=== PATIENT | female | born 1975 | race Caucasian/White ===

== ENCOUNTER 2016-09-06 13:38 | Inpatient (IN) | payer OTHER ==
[2016-09-06] VITALS (21 sets, daily range): BP systolic 97–131; BP diastolic 59–88; PULSE 62–82; RESP 14–67; Ht 157.5 cm; Wt 65.0 kg
[~2016-09-06] VITALS: Ht 157.5 cm; Wt 65.0 kg
[2016-09-06] MEDS ORDERED: ONDANSETRON 4 MG INJ IV STA ×2 (13:55→14:10)
[2016-09-06] MEDS ORDERED: ASPIRIN 325 MG TAB PO STA (13:55)
[2016-09-06] MEDS ORDERED: SOD CHLORIDE 0.9% 1,000 ML IV STA (13:57)
[2016-09-06] MEDS ORDERED: LORAZEPAM 2 MG INJ IV ONE (14:00)
[2016-09-06 14:07] LABS: BASOPHILS % 0.6 % (0.0-2.0); EOSINOPHILS # 0.2 10^3/ul (0.0-0.5); HEMATOCRIT 35.1 % (37.0-47.0); HEMOGLOBIN 11.4 g/dl (12.0-16.0); LYMPHOCYTES # 3.2 10^3/ul (0.8-2.9); LYMPHOCYTES % 41.2 % (15.0-51.0); MEAN CORPUSCULAR HEMOGLOBIN 23.4 pg (29.0-33.0); MEAN CORPUSCULAR HGB CONC 32.6 g/dl (32.0-37.0); MEAN CORPUSCULAR VOLUME 71.8 fl (82.0-101.0); MEAN PLATELET VOLUME 7.7 fl (7.4-10.4); MONOCYTE # 0.4 10^3/ul (0.3-0.9); MONOCYTES % 5.7 % (0.0-11.0); NEUTROPHILS % 50.5 % (39.0-77.0); PLATELET COUNT 374 10^3/UL (140-440); RED BLOOD COUNT 4.89 10^6/ul (4.20-5.40); RED CELL DISTRIBUTION WIDTH 17.6 % (11.5-14.5); UNCORRECTED WBC 7.9 10^3/ul (4.8-10.8); WHITE BLOOD COUNT 7.9 10^3/ul (4.8-10.8)
[2016-09-06 14:08] LABS: CONDITION 1; LH ANALYZER COMMENTS 1
[2016-09-06] MEDS ORDERED: morphine 2 MG INJ IV STA ×2 (14:10→16:10)
--- NOTE | 2016-09-06 14:11 | RADRPT ---
PROCEDURE: Chest Radiograph. CLINICAL INDICATION: Chest pain. Code STEMI. TECHNIQUE: Single frontal chest radiograph. COMPARISON: None available FINDINGS: The cardiomediastinal silhouette is within normal limits. No infiltrate or effusion is seen. Th e bones are intact. IMPRESSION: 1. Unremarkable chest radiograph. RPTAT: KK .Jessee Colby MD, MD Date Time Electronically viewed and signed by .Jessee Colby MD, on 09/06/2016 14:10 .B/
[2016-09-06 14:14] LABS: ALBUMIN 4.6 g/dl (3.3-4.9); CHLORIDE 104 mmol/L (97-110); INR 0.87; PROTIME 11.8 Sec (12.2-14.2); PT RATIO 0.9
[2016-09-06] MEDS ORDERED: HEPARIN 1000 UNITS/ML 10 ML INJ ONE (14:14)
[2016-09-06] MEDS ORDERED: FENTAnyl 50 MCG/ML VIAL ONE ×2 (14:14→14:51)
[2016-09-06] MEDS ORDERED: HEPARIN 1000 UNITS/NS (A-LINE) 1,000 ML ONE (14:14)
[2016-09-06] MEDS ORDERED: LIDOCAINE 1% (MDV) 20 ML INJ ONE (14:14)
[2016-09-06] MEDS ORDERED: BIVALIRUDIN 250MG /NS 50 ML 0 ML IVPB ONE (14:14)
[2016-09-06] MEDS ORDERED: MIDAZOLAM 1 MG/ML 2 ML INJ ONE (14:14)
[2016-09-06] MEDS ORDERED: IODIXANOL LOCM 100 ML BTL ONE (14:14)
[2016-09-06 14:15] LABS: PARTIAL THROMBOPLASTIN TIME 25.2 Sec (25.0-35.0); POTASSIUM 3.7 mmol/L (3.5-5.1); SODIUM 143 mmol/L (135-144)
[2016-09-06 14:17] LABS: ALANINE AMINOTRANSFERASE 23 IU/L (13-69); ALBUMIN/GLOBULIN RATIO 1.24; ALKALINE PHOSPHATASE 94 IU/L (42-121); ANION GAP 24 (8-16); ASPARTATE AMINO TRANSFERASE 24 IU/L (15-46); BILIRUBIN,INDIRECT 0.1 mg/dl (0-1.1); BILIRUBIN,TOTAL 0.1 mg/dl (0.2-1.3); BLOOD UREA NITROGEN 17 mg/dl (7-20); CALCIUM 9.7 mg/dl (8.4-10.2); CARBON DIOXIDE 19 mmol/L (21-31); CREATININE 0.93 mg/dl (0.44-1.00); GLUCOSE 111 mg/dl (70-220); TOTAL PROTEIN 8.3 g/dl (6.1-8.1)
[2016-09-06] MEDS ORDERED: VERAPAMIL 5 MG INJ ONE (14:17)
--- NOTE | 2016-09-06 14:17 | ERA ---
ER Documentation Chief Complaint Date/Time DATE: 09/06/16 TIME: 14:12 Chief Complaint CP SINCE 2AM TODAY HPI This is a 41-year-old female with no past medical history that presents to the emergency department complaining of a sudden onset of left substernal chest pressure that radiated to the left side of her neck and right side of her neck as well as her left arm 2 hours prior to arrival. The patient stated the pain started at 12:30 PM as she was leaving work. She stated she did not feel anxious or nervous but did have associated symptoms of diaphoresis and nausea. The patient did not experience any hemoptysis hematemesis or melanotic stools. The patient has family history of coronary artery disease his mother had a heart attack at 44 years of age. The patient does not smoke tobacco. She states the pain is 10 out of 10 in intensity with no alleviating or exacerbating factors ROS All systems reviewed and are negative except as per history of present illness. Medications Home Meds No Active Prescriptions or Reported Meds Allergies Allergies: Coded Allergies: No Known Allergy (Unverified , 09/06/16) PMhx/Soc History of Surgery: Yes (C-SECT) Physical Exam Vitals Vital Signs Date Time Temp Pulse Resp B/P Pulse Ox O2 Delivery O2 Flow Rate FiO2 09/06/16 13:50 97.9 87 19 151/80 100 Physical Exam Constitutional:Well-developed. Well-nourished. Patient was very tearful and appeared to be in a significant amount discomfort secondary to pain HEENT:Normocephalic. Atraumatic.Pupils were equal round reactive to light. Moist mucous membranes.No tonsillar exudates. Neck: No nuchal rigidity. No lymphadenopathy. No posterior cervical spine tenderness or step-offs. Respiratory: Not using accessory muscles of respiration.Lungs were clear to auscultation bilaterally. No rhonchi. No rales. No wheezing. Cardiovascular: Regular rate regular rhythm.No murmurs. No rubs were appreciated.S1, S2 normal. Distal pulses are palpable 2+ bilaterally. GI: Abdomen was soft. Nontender. Non Distended. No pulsatile abdominal masses or bruits. No rebound. No guarding. Bowel sounds were present and normal. Muscle skeletal: Full range of motion of both the upper and lower extremities bilaterally.Normal muscle tone.No assymetrical calf tenderness or swelling. Skin: No petechia, no purpura. No lesions on the palms or the soles of the feet. No maculopapular rash. NEURO: Patient was alert, awake, orientated x3.No facial droop. Gait observed and normal with no ataxia.Speech had regular rate and rhythm. No focal neurological deficits. Result Diagram: 09/06/16 1355 Results 24 hrs Laboratory Tests Test 09/06/16 13:55 Basophils # 0.010^3/ul Basophils % 0.6% Blood Morphology Comment Eosinophils # 0.210^3/ul Eosinophils % 2.0% Hematocrit 35.1% Hemoglobin 11.4g/dl Lymphocytes # 3.210^3/ul Lymphocytes % 41.2% Mean Corpuscular Hemoglobin 23.4pg Mean Corpuscular Hemoglobin Concent 32.6g/dl Mean Corpuscular Volume 71.8fl Mean Platelet Volume 7.7fl Monocytes # 0.410^3/ul Monocytes % 5.7% Neutrophils # 4.010^3/ul Neutrophils % 50.5% Nucleated Red Blood Cells # 0.010^3/ul Nucleated Red Blood Cells % 0.0/100WBC Platelet Count 60761^3/UL Red Blood Count 4.8910^6/ul Red Cell Distribution Width 17.6% White Blood Count 7.910^3/ul Current Medications Medications (Trade) Dose Ordered Sig/Gabriel Route PRN Reason Start Time Stop Time Status Last Admin Dose Admin Aspirin (Aspirin) 325 mg ONCE STAT PO 09/06/16 13:55 09/06/16 13:57 DC 09/06/16 14:01 Ondansetron HCl (Zofran Inj) 4 mg ONCE STAT IV 09/06/16 13:55 09/06/16 13:57 DC 09/06/16 14:01 Lorazepam 1 mg 1 mg ONCE ONCE IV 09/06/16 14:00 09/06/16 14:01 DC 09/06/16 14:01 Sodium Chloride (NS) 1,000 ml @ 1,000 mls/hr Q1H STAT IV 09/06/16 13:57 09/06/16 14:56 09/06/16 14:01 Procedures/[facility] The patient presented to the emergency department with chest pain. My clinical evaluation and workup was to distinguish minor causes of chest pain from acute life threatening conditions such as myocardial infarction, pulmonary embolism, aortic dissection, esophageal rupture, cardiac tamponade. The patient was placed on a electronic device monitor and continuous pulse oximetry. IV access established by nursing staff. The patient was given 325 mg of aspirin p.o. Nitroglycerin was withheld as the patient could have an inferior wall NV. The patient appeared very anxious and was given 1 mg of Ativan intravenously and morphine and Zofran for analgesic control as well as a liter bolus of 0.9 normal saline I immediately called the code STEMI after reviewing the EKG which was taken at 1339 but was shown to myself at 1:54 PM 12 Lead EKG tracing ordered and reviewed by myself showed: Normal sinus rhythm of 85 bpm and no arrhythmia. AL interval normal. QRS duration normal. ST segment elevation in the inferior leads to [address] segment depression in the anterior leads V2 V3. No ST segment depression. No changes consistent with acute ischemia. Repeat EKG taken at 1340 reviewed by myself as well also indicated a normal sinus rhythm at 79 penetrable normal QRS duration normal however there did appear to be ST segment depression in anterior leads V2 V3 with ST segment elevation in [address] Shipley immediately came to the bedside and the patient was taken to the Log Sorter at 1418. 1 view chest radiograph for and reviewed by myself indicated there is no infiltrates no pneumothorax or pleural effusions and no widened mediastinum. There is no leukocytosis and cardiac troponin is currently pending at this time Departure Diagnosis: Primary Impression: STEMI (ST elevation myocardial infarction) Qualified Code: I21.3 - ST elevation myocardial infarction (STEMI), unspecified artery Condition: Serious BALBINA VAZQUEZ Sep 06, 2016 14:17
[2016-09-06] MEDS ORDERED: NITROGLYCERIN (IC) 100 MCG/ML INJ ONE (14:21)
[2016-09-06 14:26] LABS: B-TYPE NATRIURETIC PEPTIDE 53 PG/ML (0-125)
[2016-09-06 14:31] LABS: TROPONIN-I < 0.012 ng/ml (0.00-0.12)
--- NOTE | 2016-09-06 14:47 | CONS ---
DATE OF ADMISSION: 09/06/2016 DATE OF CONSULTATION: 09/06/2016 CARDIOLOGY CONSULTATION REASON FOR CONSULTATION: ST-elevation myocardial infarction. CHIEF COMPLAINT: Severe chest pressure. HISTORY OF PRESENT ILLNESS: Thank you for this referral. History obtained from the patient, hitesh beckett with doctor in emergency room, discussion with the staff. This is an unfortunate 41-year-old f emale with no past medical history who presents who presents with above complaints. She said she wa s coming from work when she had sudden onset of chest pain and pressure, pressure-like anteriorly, s everely. Has crying, has been having severe pain. He has been given pain medication, Ativan, but s till having severe pain. EKG was done which showed minimal ST elevation inferiorly. We are kindly asked to evaluate ST-elevation myocardial infarction. PAST MEDICAL HISTORY: None. SOCIAL HISTORY: The patient does not smoke. FAMILY HISTORY: The patient's mother had FL at age 42, reportedly. ALLERGIES: NO REPORTED ALLERGIES. MEDICATIONS AT HOME: None. REVIEW OF SYSTEMS: She denied all other except for mentioned. She denies any history of anxiety to me. PHYSICAL EXAMINATION: VITAL SIGNS: Blood pressure 147/72, heart rate of 85, respiratory rate of 24, afebrile. GENERAL: Appears to be in severe distress and pain. HEENT: Normocephalic, atraumatic. Eyes . CARDIOVASCULAR: Regular rate and rhythm. PULMONARY: With no wheezes heard, no rhonchi. GASTROINTESTINAL: Soft, nontender. EXTREMITIES: With no significant lower extremity edema. NEUROLOGIC: Awake and alert. PSYCHIATRIC: Appears to be very anxious and crying. DIAGNOSTIC DATA: EKG was personally reviewed, showed normal sinus rhythm. There is some slight ST- elevation in the inferior lead, and there is slight change in the anterior lead consistent wit h inferior ST-elevation myocardial infarction. Chest x-ray shows unremarkable chest x-ray. ASSESSMENT AND PLAN: 1. Severe pain and abnormal EKG consistent with possible inferior ST-elevation myocardial infarctio n. 2. Chest pain as above. 3. Hypertension, possibly related to above. 4. Rule out dyslipidemia. 5. Strong family history of coronary artery disease. 6. History of myoclonic use. RECOMMENDATIONS: Given her clinical presentation of severe pain and abnormality on the EKG. The keren hartley was recommended to undergo emergent left heart catheterization, right and left coronary angiop lasty, percutaneous coronary intervention. Risks. benefits, and alternatives discussed with the pat ient in detail. Risks included, but not limited to, infection, vascular complication, bleeding comp lication, FL, stroke, arrhythmia, etc., discussed with the patient. The patient consented. 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 Dictated By: RACHELLE AGUILAR MD AV/NTS Conf#: [id number] DID#: [id number] CC: BALBINA VAZQUEZ MD;*EndCC*
[2016-09-06] MEDS ORDERED: SOD CHLORIDE 0.9% 1,000 ML IV SCH (15:09)
--- NOTE | 2016-09-06 17:25 | SP ---
DATE OF PROCEDURE: 09/06/2016 NAME OF PROCEDURE: 1. Emergent left heart catheterization and ____ coronary angiography. 2. Left ventricle and LVEDP measurement of ____. INDICATIONS: A 41-year-old female with reported family history of coronary artery disease in mother at age 42. Presented with severe anterior chest pressure, sudden onset at rest. The patient's EKG showed slight ST elevation in the inferior leads consistent with possible ST elevation myocardial i nfarction. She was recommended to undergo emergent cardiac catheterization. FINDINGS: 1. Left main coronary normal. Left anterior descending artery is a small vessel. It is tortuous w ith no significant stenosis. 2. Left circumflex artery is a moderate to large vessel. Second obtuse marginal is very small, pro bably diffuse disease. 3. Right coronary artery is a large, dominant vessel. Ostially had area spasm possibly ____ induce d. After nitroglycerin was given, there was only 20% stenosis noted proximally. 4. LV systolic pressure is 124, LVEDP is 13, aortic pressure with pullback is 122/72. DESCRIPTION OF PROCEDURE: Written informed consent was discussed with the patient. The patient was ____ position, ____ sterile fashion. Right groin area was anesthetized with 1% lidocaine. Mobiliz ing a 6-Upper Sorbian sheath was placed in right femoral artery. A JL4 catheter was advanced and engaged i n the left main coronary artery. Angiogram was obtained. JR4 catheter was advanced ____. Right co ronary angiogram was obtained. Intracoronary nitroglycerin was given. Angiogram ____ was repeated. Catheter and Glidewire were removed. Pigtail was advanced and engaged in the left main, hemodynam ics recorded. LV gram performed. Pullback aortic pressure was measured. Ejection fraction estimat ed about 60% to 65%. COMPLICATIONS: None. Right femoral angiogram was performed. CONCLUSION: Coronary angiography showed no significant flow-limiting obstruction. Recommend medic al therapy. Dictated By: RACHELLE METZ/PILO Conf#: [id number] DID#: [id number]
[2016-09-06] MEDS ORDERED: NACL 0.9% 3 ML SYG IV SCH (18:30)
[2016-09-06] MEDS ORDERED: ONDANSETRON 4 MG TAB PO PRN (18:30)
[2016-09-06] MEDS ORDERED: NITROGLYCERIN (SL) 0.4 MG TAB SL PRN (18:30)
[2016-09-06] MEDS: SOD CHLORIDE 0.45% 1,000 ML IV SCH (19:10)
--- NOTE | 2016-09-06 19:56 | HP ---
DATE OF ADMISSION: 09/06/2016 SCRUB TECH: Cardiology. CHIEF COMPLAINT: Chest pain. HISTORY OF PRESENT ILLNESS: This is a 41-year-old female with no significant past medical history w niranjan presents to [facility] secondary to having left-sided chest pain which was subs ternal, radiating into her left side of her neck. It started this morning around 12:30 p.m. The keren hartley was leaving work. She stated that she was not feeling anxious or nervous, did have associated symptoms with diaphoresis and nausea. There was no shortness of breath or any other discomfort. T he pain was 10/10, radiating to her neck. Upon arrival to emergency room, the patient's EKG demonst rated ST elevation. Code STEMI was called and patient was taken to the left heart catheterization i mmediately after she was treated with aspirin 325 mg, nitroglycerin, and normal saline. The patient had an emergent left heart catheterization and coronary angiography, which showed normal coronaries with no significant flow-limiting obstruction. The patient was taken to recovery room and has been admitted to telemetry floor. At this time, patient denies having any chest pain, shortness of an th, nausea, vomiting, diarrhea. No headache, dizziness, numbness. No change in visual acuity, dipl opia, photophobia. No heat and cold intolerance. No neck pain. No restricted range of motion in u pper or lower extremities. No weight loss or weight gain. No recent travel history. No sick conta ct. No trauma to her chest area or abdominal area. PAST MEDICAL AND PAST SURGICAL HISTORY: None. SOCIAL HISTORY: Negative x3 for smoking, alcohol, illicit drugs. FAMILY HISTORY: Mother had a myocardial infarction when she was in mid 60s. REVIEW OF SYSTEMS: As above per HPI, otherwise 12 review of systems was found to be negative. PHYSICAL EXAMINATION: VITAL SIGNS: Temperature 98.6, pulse 62, respiration 18, blood pressure ____/65, saturation 100%. GENERAL APPEARANCE: The patient is lying in bed comfortably without any acute distress. She is reymundo ke, alert, oriented. She is able to answer my questions properly. EYES AND ENT: Conjunctivae and lids are normal. Pupils are normal. Extraocular normal. Hearing g rossly normal. Lips are normal. Oral mucosa is moist. NECK: Supple. Trachea is midline. No lymphadenopathy. RESPIRATORY: Effort is normal. Clear to auscultate bilaterally. CARDIOVASCULAR: Normal S1, S2. Regular rhythm and rate. No murmur, no bruits, no edema. Peripher al pulses and radial pulses palpable. Cap refill is normal. CHEST: Normal expansion of thorax during inspiration. GASTROINTESTINAL: Abdomen is soft, nontender, not distended. Bowel sounds present. No guarding, r ebound. GENITOURINARY: Deferred. MUSCULOSKELETAL: Upper and lower extremities within normal limits. Full range of motion. Strength 5/5 in both upper and lower extremities. NEUROLOGIC: Cranial nerves II through XII are grossly intact. PSYCHIATRIC: Normal judgment and insight. Alert and oriented x3. Mood and affect is normal. LABORATORY WORK AND IMAGING: EKG showed normal sinus rhythm. There is some ST elevation in inferio r lead, and then changes to anteriorly consistent with inferior ST elevation myocardial infarction. WBC 7.9, hemoglobin 11.4, hematocrit 35.1, MCV 71.8, platelet 374. Sodium 143, potassium 3.7, chlo ride 104, bicarbonate 19, BUN 17, creatinine 0.93, glucose 111, calcium 9.7. Beta hCG negative. LF Ts all within normal limits. ASSESSMENT AND PLAN: 1. ST elevation myocardial infarction, status post left heart catheterization with 3 clean coronary arteries status post emergent left heart catheterization and coronary angiography. Was found to bryson ve no significant flow-limiting obstruction. Follow up lipid panel. The patient has been started o n aspirin. Will follow up 2D echocardiogram. 2. Questionable anxiety. The patient has been placed on Ativan p.r.n. 3. Microcytic anemia. We will follow up iron panel in a.m. and treat accordingly. 4. For deep venous thrombosis prophylaxis, we will place the patient on Lovenox. 5. For gastrointestinal prophylaxis, on proton pump inhibitor. 6. We will continue to monitor patient closely. Further recommendations, management, and treatment as per clinical course. Total amount of time was spent for evaluation of patient and admission workup 40 minutes. Dictated By: HUNG MORAES MD PN/NTS Conf#: [id number] DID#: [id number]
[2016-09-06 20:42] LABS: CK-MB 26.8 ng/ml (0.0-2.4)
[2016-09-06 20:50] LABS: TROPONIN-I 6.78 ng/ml (0.00-0.12)
[2016-09-06] MEDS: ACETAMINOPHEN 325 MG TAB PO PRN (20:54)
[2016-09-06] MEDS: LORAZEPAM 0.5 MG TAB PO PRN (21:46)
[2016-09-07] VITALS (11 sets, daily range): BP systolic 109–128; BP diastolic 62–76; PULSE 56–84; RESP 17–20
[2016-09-07 02:55] LABS: CK-MB 24.5 ng/ml (0.0-2.4)
[2016-09-07 03:03] LABS: TROPONIN-I 8.15 ng/ml (0.00-0.12)
[2016-09-07] MEDS: PANTOPRAZOLE (EC) 40 MG TAB PO SCH (05:48)
[2016-09-07 07:14] LABS: ALBUMIN 3.8 g/dl (3.3-4.9)
[2016-09-07 07:15] LABS: POTASSIUM 3.8 mmol/L (3.5-5.1)
[2016-09-07 07:16] LABS: CREATININE 0.79 mg/dl (0.44-1.00)
[2016-09-07 07:17] LABS: ALBUMIN/GLOBULIN RATIO 1.26; BILIRUBIN,INDIRECT 0.8 mg/dl (0-1.1); BILIRUBIN,TOTAL 0.8 mg/dl (0.2-1.3); CALCIUM 9.4 mg/dl (8.4-10.2); TOTAL PROTEIN 6.8 g/dl (6.1-8.1)
[2016-09-07 07:18] LABS: CHOL/HDL RATIO 4.8 RATIO; MAGNESIUM 1.8 mg/dl (1.7-2.5)
[2016-09-07 07:28] LABS: TROPONIN-I 5.36 ng/ml (0.00-0.12)
[2016-09-07 07:31] LABS: BASOPHILS % 0.4 % (0.0-2.0); EOSINOPHILS # 0.1 10^3/ul (0.0-0.5); EOSINOPHILS % 1.9 % (0.0-7.0); HEMATOCRIT 31.6 % (37.0-47.0); HEMOGLOBIN 10.4 g/dl (12.0-16.0); LYMPHOCYTES % 31.4 % (15.0-51.0); MEAN CORPUSCULAR HEMOGLOBIN 23.7 pg (29.0-33.0); MEAN CORPUSCULAR HGB CONC 32.9 g/dl (32.0-37.0); MONOCYTE # 0.4 10^3/ul (0.3-0.9); MONOCYTES % 6.8 % (0.0-11.0); NEUTROPHIL # 3.7 10^3/ul (1.6-7.5); NEUTROPHILS % 59.5 % (39.0-77.0); PLATELET COUNT 300 10^3/UL (140-440); RED BLOOD COUNT 4.39 10^6/ul (4.20-5.40); RED CELL DISTRIBUTION WIDTH 17.8 % (11.5-14.5); UNCORRECTED WBC 6.3 10^3/ul (4.8-10.8); WHITE BLOOD COUNT 6.3 10^3/ul (4.8-10.8)
[2016-09-07 07:32] LABS: IRON 56 ug/dl (35-150)
[2016-09-07 07:41] LABS: TOTAL IRON BINDING CAPACITY 343 ug/dl (241-421)
[2016-09-07 07:46] LABS: CONDITION 1; LH ANALYZER COMMENTS 1
[2016-09-07 07:47] LABS: THYROID STIMULATING HORMONE 0.805 MIU/L (0.465-4.680)
[2016-09-07] MEDS: morphine 2 MG INJ IV PRN (08:44)
[2016-09-07] MEDS: SOD CHLORIDE 0.45% 1,000 ML IV SCH ×2 (08:45→21:02)
[2016-09-07] MEDS: ASPIRIN 81 MG TAB PO SCH (08:46)
[2016-09-07] MEDS: ENOXAPARIN 40 MG/0.4 ML SYG SC SCH (08:49)
[2016-09-07] MEDS ORDERED: INFLUENZA VIRUS VACCINE 0.5 ML SYG IM* ONE (09:00)
--- NOTE | 2016-09-07 09:35 | RADRPT ---
Echocardiogram Report Patient Name: MEREDITH ANGULO Gender: Female Date: 1975 Study Date: 07-Sep-2016 Oyster Opener: Dionicio Valenuzela [facility] Location: [id number] Ref. Physician: RACHELLE SOTO Quality: Good Procedures: Transthoracic echocardiogram with complete 2D, M-Mode, and doppler examination. Indications: Chest Pain. 2D/M Mode Doppler Measurement Value Normal Ranges Measurement Value Normal Ranges LVIDd 2D 4.0 3.5 - 5.6 cm AV Peak Howard 1.2 m/sec LVIDs 2D 1.7 2.1 - 4.1 cm AV Peak PG 6.2 mmHg LVPWd 2D 0.9 0.6 - 1.1 cm LVOT Peak Howard 1.1 m/sec IVSd 2D 0.8 0.6 - 1.1 cm LVOT Peak PG 4.5 mmHg AoR Diam 2D 2.5 2.0 - 3.7 cm MV E Peak Howard 0.6 m/sec EDV 2D 68.6 cm3 MV A Peak Howard 0.5 m/sec ESV 2D 5.1 cm3 MV E/A 1.1 LA Dimen 2D 3.5 2.3 - 4.0 cm MV Decel Time 215 msec MV Decel Davison 3 MV E/A 1.1 Findings Left Ventricle: Normal left ventricular systolic function. Normal left ventricular cavity size. Normal left ventricular wall thickness. Ejection fraction is visually estimated at 65 %. Tissue Doppler/Mitral Doppler indices are within normal limits. Right Ventricle: Normal right ventricular size. Normal right ventricular systolic function. Left Atrium: The left atrium is normal in size. Right Atrium: The right atrium is normal in size. Mitral Valve: Normal appearance and function of the mitral valve with trace physiologic regurgitation. Aortic Valve: Normal appearance of the aortic valve. No significant aortic stenosis or insufficiency. Tricuspid Valve: Normal appearance of the tricuspid valve. Unable to obtain RVSP due to minimal presence of tricuspid regurgitation. Pulmonic Valve: Normal pulmonic valve appearance. Pericardium: Normal pericardium with no significant pericardial effusion. Aorta: Normal aortic root. IVC: Normal size and normal respiratory collapse consistent with normal right atrial pressure. Conclusions 1.Normal left ventricular systolic function. Normal left ventricular cavity size. Normal left ventricular wall thickness. Ejection fraction is visually estimated at 65 %. Tissue Doppler/Mitral Doppler indices are within normal limits. 2.Normal appearance and function of the mitral valve with trace physiologic regurgitation. 3.Normal appearance of the aortic valve. No significant aortic stenosis or insufficiency. 4.Normal appearance of the tricuspid valve. Unable to obtain RVSP due to minimal presence of tricuspid regurgitation. Electronically Signed By: Rachelle Soto 07-Sep-2016 09:33:59 -0800 Patient Name: MEREDITH ANGULO Study Date: 07-Sep-2016 [id number]
[2016-09-07] MEDS: LORAZEPAM 0.5 MG TAB PO PRN (12:09)
[2016-09-07] MEDS: COLCHICINE 0.6 MG TAB PO SCH ×2 (12:09→21:02)
[2016-09-07] MEDS: ISOSORBIDE DINITRATE 20 MG TAB PO SCH ×2 (12:09→21:05)
--- NOTE | 2016-09-07 12:31 | PN ---
DATE: 09/07/2016 CARDIOLOGY FOLLOWUP SUBJECTIVE: Discussed with the staff. Rhythm strip was reviewed. Discussed with the patient's fri ends/family at the bedside. The patient pain including chest pain, back pain, groin pain. MEDICATIONS: Reviewed as per medical reconciliation, personally reviewed. PHYSICAL EXAMINATION: VITAL SIGNS: Temperature 98.8, heart rate of 60, blood pressure 120/71, respiratory rate of 17, sat urating 100%. HEENT: Normocephalic, atraumatic. Pupils are equal. CARDIOVASCULAR: Regular rate and rhythm, systolic murmur. PULMONARY: With no wheezes. GASTROINTESTINAL: Soft. No rebound or guarding. VASCULAR: Right femoral with no bleed, no hematoma, no bruit. GASTROINTESTINAL: Mildly tender to palpation. EXTREMITIES: Reveal edema. NEUROLOGIC: Awake and alert. PSYCHIATRIC: Anxious, but pleasant. LABORATORY: Sodium 142, potassium 3.8, BUN of 11, creatinine 0.79, glucose 95. Cholesterol 183, LD L of 112, HDL 38. TSH is 0.8. Total CK is 519 at peak, peak troponin is 8.15, has come down to 5.3 6. ASSESSMENT AND PLAN: 1. Possible transient ST elevation myocardial infarction with normal coronaries. 2. Abnormal troponin. Differential diagnoses includes transient myocardial infarction due to vasos pasm versus myocarditis, which is probably the most likely cause versus others. 3. Mild dyslipidemia. 4. Anxiety. 5. Chronic pain. RECOMMENDATIONS: I will start the patient on isosorbide as well as colchicine. Indocin will be giv en as needed. We will monitor overnight. Discharge planning for tomorrow. Echocardiogram was also personally reviewed, which showed normal LV systolic function. We will follow the electrolytes and troponin again tomorrow. Dictated By: RACHELLE METZ/PLIO Conf#: [id number] DID#: [id number]
--- NOTE | 2016-09-07 14:58 | PN ---
Date/Time of Note Date/Time of Note DATE: 09/07/16 TIME: 14:51 Assessment/Plan VTE Prophylaxis VTE Prophylaxis Intervention: LMWH Lines/Catheters IV C[facility]ter Type (from [facility] Peripheral IV Urinary Cath still in place: No Assessment/Plan Chief Complaint/Hosp Course ASSESSMENT AND PLAN: 1. Possible transient ST elevation myocardial infarction with normal coronaries. Continue aspirin 2. Abnormal troponin. Differential diagnoses includes transient myocardial infarction due to vasospasm versus myocarditis, which is probably the most likely cause versus others. Cardiology has been consulted, continue colchicine and aspirin Continue isodril for vasospasm 3. Mild dyslipidemia. Continue low-carb diet 4. Anxiety. 5. Headache Continue colchicine and aspirin 6. Microcytic anemia Start ferrous sulfate We will continue monitor patient closely for recommendation management treatment as clinical course Plan to discharge home tomorrow Problems: Subjective 24 Hr Interval Summary Free Text/Dictation Patient continues to complain of having generalized body aches Complains of having headache Denies any chest pain or shortness of breath Exam/Review of Systems Vital Signs Vitals Vital Signs Date Time Temp Pulse Resp B/P Pulse Ox O2 Delivery O2 Flow Rate FiO2 09/07/16 13:47 60 09/07/16 12:09 97.9 18 128/69 97 09/07/16 08:00 Nasal Cannula 2.0 Intake and Output 09/06/16 09/06/16 09/07/16 15:00 23:00 07:00 Intake Total 287.5 ml 840 ml Output Total 500 ml 1000 ml Balance -212.5 ml -160 ml Exam General: The patient is well-developed, Not in acute distress. HEENT: Atraumatic, normocephalic. The pupils are equal and round . Neck: Supple with full range of motion. Chest: Normal expansion of the thorax during inspiration Lungs: Clear to auscultation bilaterally Heart: Normal S1-S2, Regular rhythm and rate. Abdomen: Soft , nontender, nondistended , bowel sounds are present. Extremities: Normal to inspection, no edema no cyanosis Neurologic: Normal mental status,The patient is awake, alert and oriented . Results Result Diagram: 09/07/16 0620 09/07/16 0620 Results 24 hrs Laboratory Tests Test 09/06/16 19:54 09/07/16 02:12 09/07/16 06:20 Creatine Kinase 519 H 452 H 414 H Creatine Kinase Index 5.2 5.4 4.3 Creatinine Kinase MB (Mass) 26.80 H 24.50 H 18.00 H Troponin I 6.780 *H 8.150 *H 5.360 *H Alanine Aminotransferase (ALT/SGPT) 50 Albumin 3.8 Albumin/Globulin Ratio 1.26 Alkaline Phosphatase 80 Anion Gap 14 # Aspartate Amino Transf (AST/SGOT) 76 H Basophils # 0.0 Basophils % 0.4 Blood Morphology Comment Blood Urea Nitrogen 11 Calcium Level 9.4 Carbon Dioxide Level 24 Chloride Level 108 Cholesterol Level 183 Cholesterol/HDL Ratio 4.8 Creatinine 0.79 Direct Bilirubin 0.00 Eosinophils # 0.1 Eosinophils % 1.9 Ferritin 4.6 L Free Thyroxine 0.97 Globulin 3.00 Glucose Level 95 HDL Cholesterol 38 Hematocrit 31.6 L Hemoglobin 10.4 L Indirect Bilirubin 0.8 Iron Level 56 LDL Cholesterol, Calculated 112 Lymphocytes # 2.0 Lymphocytes % 31.4 Magnesium Level 1.8 Mean Corpuscular Hemoglobin 23.7 L Mean Corpuscular Hemoglobin Concent 32.9 Mean Corpuscular Volume 72.0 L Mean Platelet Volume 8.0 Monocytes # 0.4 Monocytes % 6.8 Neutrophils # 3.7 Neutrophils % 59.5 Nucleated Red Blood Cells # 0.0 Nucleated Red Blood Cells % 0.0 Percent Iron Saturation 16 L Platelet Count 300 Potassium Level 3.8 Red Blood Count 4.39 Red Cell Distribution Width 17.8 H Sodium Level 142 Thyroid Stimulating Hormone (TSH) 0.805 Total Bilirubin 0.8 Total Iron Binding Capacity 343 Total Protein 6.8 # Triglycerides Level 167 H White Blood Count 6.3 # Medications Medications Current Medications Miscellaneous Information HOLD all METFORMIN ... ONCE XX ; Start 09/06/16 at 15: 30; Stop 09/08/16 at 15:29 Sodium Chloride (1/2 NS) 1,000 ml @ 75 mls/hr [id number] IV Last administered on 09/07/16 08:45; Admin Dose 75 MLS/HR; Start 09/06/16 at 18:25 Lorazepam (Ativan) 0.5 mg Q8H PRN PO ANXIETY Last administered on 09/07/16 12: 09; Admin Dose 0.5 MG; Start 09/06/16 at 18:30 Ondansetron HCl (Zofran Tab) 4 mg Q6H PRN PO NAUSEA AND/OR VOMITING; Start at 18:30 Aspirin (Aspirin) 81 mg DAILY PO Last administered on 09/07/16 08:46; Admin Dose 81 MG; Start 09/07/16 at 09:00 Nitroglycerin (Nitroglycerin (Sl Tab) 0.4 Mg) 1 tab Q5M PRN SL CHEST PAIN; Start 09/06/16 at 18:30 Acetaminophen (Tylenol Tab) 650 mg Q6H PRN PO PAIN LEVEL 1-3 OR FEVER Last administered on 09/06/16 20:54; Admin Dose 650 MG; Start 09/06/16 at 18:30 Morphine Sulfate (morphine) 1 mg Q4H PRN IV PAIN LEVEL 7-10 Last administered on 09/07/16 08:44; Admin Dose 1 MG; Start 09/06/16 at 18:30 Pantoprazole (Protonix Tab) 40 mg DAILY@06 PO Last administered on 09/07/16 05 :48; Admin Dose 40 MG; Start 09/07/16 at 06:00 Enoxaparin Sodium (Lovenox) 40 mg DAILY SC Last administered on 09/07/16 08:49 ; Admin Dose 40 MG; Start 09/07/16 at 09:00 Isosorbide Dinitrate (Isordil) 20 mg TID PO Last administered on 09/07/16 12: 09; Admin Dose 20 MG; Start 09/07/16 at 13:00 Colchicine (Colchicine) 0.6 mg BID PO Last administered on 09/07/16 12:09; Admin Dose 0.6 MG; Start 09/07/16 at 12:30 Indomethacin (Indocin) 25 mg Q6H PRN PO .CHEST PAIN; Start 09/07/16 at 11:00 HUNG MORAES MD Sep 07, 2016 14:58
[2016-09-07] MEDS: INDOMETHACIN 25 MG PO PRN (17:25)
[2016-09-07] MEDS ORDERED: CALCIUM CARBONATE 500 MG CHEW TAB PO PRN (17:30)
[2016-09-08] VITALS (12 sets, daily range): BP systolic 98–116; BP diastolic 51–67; PULSE 63–80; RESP 17–20
[2016-09-08] MEDS: morphine 2 MG INJ IV PRN (04:34)
[2016-09-08] MEDS: PANTOPRAZOLE (EC) 40 MG TAB PO SCH (06:10)
[2016-09-08 07:12] LABS: ALBUMIN 3.6 g/dl (3.3-4.9)
[2016-09-08 07:15] LABS: ALBUMIN/GLOBULIN RATIO 1.16; BILIRUBIN,INDIRECT 0.4 mg/dl (0-1.1); BILIRUBIN,TOTAL 0.4 mg/dl (0.2-1.3); CREATININE 0.79 mg/dl (0.44-1.00); TOTAL PROTEIN 6.7 g/dl (6.1-8.1)
[2016-09-08 07:16] LABS: CALCIUM 8.8 mg/dl (8.4-10.2)
[2016-09-08] MEDS: INDOMETHACIN 25 MG PO PRN (07:24)
[2016-09-08 08:10] LABS: CK-MB 3.5 ng/ml (0.0-2.4)
[2016-09-08 08:16] LABS: TROPONIN-I 1.45 ng/ml (0.00-0.12)
[2016-09-08] MEDS: ASPIRIN 81 MG TAB PO SCH (08:47)
[2016-09-08] MEDS: FERROUS SULFATE (EC) 325 MG TAB PO SCH (08:47)
[2016-09-08] MEDS: COLCHICINE 0.6 MG TAB PO SCH (08:47)
[2016-09-08] MEDS: ISOSORBIDE DINITRATE 20 MG TAB PO SCH ×2 (08:48→13:02)
[2016-09-08] MEDS: ENOXAPARIN 40 MG/0.4 ML SYG SC SCH (08:50)
[2016-09-08] MEDS: SOD CHLORIDE 0.45% 1,000 ML IV SCH ×2 (11:13→23:45)
--- NOTE | 2016-09-08 13:39 | DS ---
Date/Time of Note Date/Time of Note DATE: 09/08/16 TIME: : Discharge Summary Admission/Discharge Info Admit Date/Time Sep 06, 2016 at 17:55 Discharge Date/Time Final Diagnosis 1. Chest pain, muscular, soma, motrin 2. Abnormal troponin. likely muscular with high CPK Patient Condition: Stable Hospital Course This is a 41-year-old female with no significant past medical history who presents to [facility] secondary to having left-sided chest pain which was substernal, radiating into her left side of her neck. It started this morning around 12:30 p.m. The patient was leaving work. She stated that she was not feeling anxious or nervous, did have associated symptoms with diaphoresis and nausea. There was no shortness of breath or any other discomfort. The pain was 10/10, radiating to her neck. Upon arrival to emergency room, the patient's EKG demonstrated ST elevation. Code STEMI was called and patient was taken to the left heart catheterization immediately after she was treated with aspirin 325 mg, nitroglycerin, and normal saline. The patient had an emergent left heart catheterization and coronary angiography , which showed normal coronaries with no significant flow-limiting obstruction. The patient was taken to recovery room and has been admitted to telemetry floor. At this time, patient denies having any chest pain, shortness of breath , nausea, vomiting, diarrhea. No headache, dizziness, numbness. No change in visual acuity, diplopia, photophobia. No heat and cold intolerance. No neck pain. No restricted range of motion in upper or lower extremities. No weight loss or weight gain. No recent travel history. No sick contact. No trauma to her chest area or abdominal area. Home Meds No Active Prescriptions or Reported Meds Pending Labs Laboratory Tests Test 09/08/16 06:30 Alanine Aminotransferase (ALT/SGPT) 44IU/L (13-69) Albumin 3.6g/dl (3.3-4.9) Albumin/Globulin Ratio 1.16 Alkaline Phosphatase 73IU/L (42-121) Anion Gap 17 (8-16) Aspartate Amino Transf (AST/SGOT) 42IU/L (15-46) Blood Urea Nitrogen 12mg/dl (7-20) Calcium Level 8.8mg/dl (8.4-10.2) Carbon Dioxide Level 24mmol/L (21-31) Chloride Level 106mmol/L (97-110) Creatine Kinase 138IU/L (23-200) Creatine Kinase Index 2.5 Creatinine 0.79mg/dl (0.44-1.00) Creatinine Kinase MB (Mass) 3.50ng/ml (0.0-2.4) Direct Bilirubin 0.00mg/dl (0.00-0.20) Globulin 3.10g/dl (1.3-3.2) Glucose Level 96mg/dl (70-220) Indirect Bilirubin 0.4mg/dl (0-1.1) Potassium Level 4.0mmol/L (3.5-5.1) Sodium Level 143mmol/L (135-144) Total Bilirubin 0.4mg/dl (0.2-1.3) Total Protein 6.7g/dl (6.1-8.1) Troponin I 1.450ng/ml (0.00-0.12) SALVATORE VELARDE MD Sep 08, 2016 13:32
--- NOTE | 2016-09-08 13:42 | PN ---
Date/Time of Note Date/Time of Note DATE: 09/08/16 TIME: 13:40 Assessment/Plan VTE Prophylaxis VTE Prophylaxis Intervention: LMWH Lines/Catheters IV Catheter Type (from [facility]): Peripheral IV Urinary Cath still in place: No Assessment/Plan Chief Complaint/Hosp Course This is a 41-year-old female with no significant past medical history who presents to [facility] secondary to having left-sided chest pain which was substernal, radiating into her left side of her neck. It started this morning around 12:30 p.m. The patient was leaving work. She stated that she was not feeling anxious or nervous, did have associated symptoms with diaphoresis and nausea. There was no shortness of breath or any other discomfort. The pain was 10/10, radiating to her neck. Upon arrival to emergency room, the patient's EKG demonstrated ST elevation. Code STEMI was called and patient was taken to the left heart catheterization immediately after she was treated with aspirin 325 mg, nitroglycerin, and normal saline. The patient had an emergent left heart catheterization and coronary angiography , which showed normal coronaries with no significant flow-limiting obstruction. The patient was taken to recovery room and has been admitted to telemetry floor. At this time, patient denies having any chest pain, shortness of breath , nausea, vomiting, diarrhea. No headache, dizziness, numbness. No change in visual acuity, diplopia, photophobia. No heat and cold intolerance. No neck pain. No restricted range of motion in upper or lower extremities. No weight loss or weight gain. No recent travel history. No sick contact. No trauma to her chest area or abdominal area. Problems: Assessment/Plan 1. Chest pain, muscular, soma, motrin 2. Abnormal troponin. likely muscular with high CPK 3. DVT prophylaxis: lovenox Subjective 24 Hr Interval Summary Free Text/Dictation still has pain on upper frontal and back chest pain, involving neck and both upper arms Exam/Review of Systems Vital Signs Vitals Vital Signs Date Time Temp Pulse Resp B/P Pulse Ox O2 Delivery O2 Flow Rate FiO2 09/08/16 12:14 97.5 66 18 116/62 97 09/08/16 08:00 Nasal Cannula 2.0 Intake and Output 09/07/16 09/07/16 09/08/16 15:00 23:00 07:00 Intake Total 1915 ml 765 ml Balance 1915 ml 765 ml Exam Constitutional: alert, oriented, well developed Psych: nl mood/affect, no complaints Head: atraumatic, normocephalic Eyes: EOMI, PERRL, nl conjunctiva, nl lids ENMT: nl external ears & nose, nl lips & teeth, nl nasal mucosa & septum Neck: non-tender, supple Respiratory: clear to auscultation, normal air movement, No congested cough, No crackles/rales, No diminished breath sounds, No intercostal retraction, No labored breathing, No other, No respirations, No tactile fremitus, No wheezing Cardiovascular: No S3, No S4, No bruits, No diastolic murmur, No edema, No gallop, No irregular rhythm, No jugular venous distention (JVD), No murmurs/ extra sounds, No nl pulses, No other, No regular rate and rhythm, No rub, No systolic murmur Gastrointestinal: nl liver, spleen, non-tender, soft Musculoskeletal: nl extremities to inspection Extremities: normal pulses, No calf tenderness, No clubbing, No cyanosis, No edema, No other, No palpable cord, No pitting pedal edema, No tenderness 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: 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 intact, nl mental status, nl speech, nl strength Skin: nl turgor, rash or lesions Results Result Diagram: 09/07/16 0620 09/08/16 0630 Results 24 hrs Laboratory Tests Test 09/08/16 06:30 Alanine Aminotransferase (ALT/SGPT) 44 Albumin 3.6 Albumin/Globulin Ratio 1.16 Alkaline Phosphatase 73 Anion Gap 17 H Aspartate Amino Transf (AST/SGOT) 42 Blood Urea Nitrogen 12 Calcium Level 8.8 Carbon Dioxide Level 24 Chloride Level 106 Creatine Kinase 138 # Creatine Kinase Index 2.5 Creatinine 0.79 Creatinine Kinase MB (Mass) 3.50 H Direct Bilirubin 0.00 Globulin 3.10 Glucose Level 96 Indirect Bilirubin 0.4 Potassium Level 4.0 Sodium Level 143 Total Bilirubin 0.4 Total Protein 6.7 Troponin I 1.450 *H Medications Medications Current Medications Miscellaneous Information HOLD all METFORMIN ... ONCE XX ; Start 09/06/16 at 15: 30; Stop 09/08/16 at 15:29 Sodium Chloride (1/2 NS) 1,000 ml @ 75 mls/hr [id number] IV Last administered on 09/08/16 11:13; Admin Dose 75 MLS/HR; Start 09/06/16 at 18:25 Lorazepam (Ativan) 0.5 mg Q8H PRN PO ANXIETY Last administered on 09/07/16 12: 09; Admin Dose 0.5 MG; Start 09/06/16 at 18:30 Ondansetron HCl (Zofran Tab) 4 mg Q6H PRN PO NAUSEA AND/OR VOMITING; Start at 18:30 Aspirin (Aspirin) 81 mg DAILY PO Last administered on 09/08/16 08:47; Admin Dose 81 MG; Start 09/07/16 at 09:00 Nitroglycerin (Nitroglycerin (Sl Tab) 0.4 Mg) 1 tab Q5M PRN SL CHEST PAIN; Start 09/06/16 at 18:30 Acetaminophen (Tylenol Tab) 650 mg Q6H PRN PO PAIN LEVEL 1-3 OR FEVER Last administered on 09/06/16 20:54; Admin Dose 650 MG; Start 09/06/16 at 18:30 Morphine Sulfate (morphine) 1 mg Q4H PRN IV PAIN LEVEL 7-10 Last administered on 09/08/16 04:34; Admin Dose 1 MG; Start 09/06/16 at 18:30 Pantoprazole (Protonix Tab) 40 mg DAILY@06 PO Last administered on 09/08/16 06 :10; Admin Dose 40 MG; Start 09/07/16 at 06:00 Enoxaparin Sodium (Lovenox) 40 mg DAILY SC Last administered on 09/08/16 08:50 ; Admin Dose 40 MG; Start 09/07/16 at 09:00 Isosorbide Dinitrate (Isordil) 20 mg TID PO Last administered on 09/08/16 13: 02; Admin Dose 20 MG; Start 09/07/16 at 13:00 Colchicine (Colchicine) 0.6 mg BID PO Last administered on 09/08/16 08:47; Admin Dose 0.6 MG; Start 09/07/16 at 12:30 Indomethacin (Indocin) 25 mg Q6H PRN PO .CHEST PAIN Last administered on 07:24; Admin Dose 25 MG; Start 09/07/16 at 11:00 Ferrous Sulfate (Ferrous Sulfate (Ec)) 325 mg DAILY PO Last administered on t 08:47; Admin Dose 325 MG; Start 09/08/16 at 09:00 SALVATORE VELARDE MD Sep 08, 2016 13:42
--- NOTE | 2016-09-08 13:49 | PN ---
DATE: 09/08/2016 CARDIOLOGY FOLLOWUP SUBJECTIVE: The patient still complains of chest pain, headache, arm pain, abdominal pain. Discuss ed with her friend at the bedside. MEDICATIONS: Reviewed. PHYSICAL EXAMINATION: VITAL SIGNS: Temperature 97.8, heart rate of 64, blood pressure 103/64, respiration rate of 18, sat urating 100%. HEENT: Normocephalic, atraumatic. Appears to be an anxious female. Pupils are equal. CARDIOVASCULAR: Regular rate and rhythm, systolic murmur grade I. PULMONARY: No wheezes, no rhonchi. GASTROINTESTINAL: Soft, mild tenderness to palpation, but no rebound or guarding. EXTREMITIES: No significant edema. NEUROLOGIC: Awake and alert. PSYCHIATRIC: Anxious, but otherwise pleasant. LABORATORY: Sodium 143, potassium 4, BUN of 12, creatinine 0.79, glucose of 96. CK has come down t o 138. Troponin is still pending. Albumin is 3.6. ASSESSMENT AND PLAN: 1. Possible transient inferior ST elevation myocardial infarction. Coronary artery appeared to be normal. No significant coronary artery disease. 2. Abnormal troponin, consistent with myocardial injury. Differential diagnoses includes pos sible vasospasm versus myocarditis versus others. 3. Dyslipidemia. 4. Anxiety. RECOMMENDATIONS: We will continue with the current cardiac care including isosorbide and colchicine . Indocin will be given as needed as well. Aspirin daily. Proton pump inhibitor will be continued for GI prophylaxis. Dictated By: RACHELLE AGUILAR MD AV/PILO Conf#: [id number] DID#: [id number] CC: HUNG MORAES MD;*[facility]*
[2016-09-08] MEDS: IBUPROFEN 400 MG TAB PO SCH ×3 (14:46→23:53)
--- NOTE | 2016-09-08 15:50 | RADRPT ---
Vent Rate: 70 bpm RR Interval: 0 msec UT Interval: 134 msec QRS Duration: 72 msec QT Interval: 420 msec QTC Interval: 453 msec P-R-T Merrick: 65 - 74 - 103 degrees Normal sinus rhythm with sinus arrhythmia Nonspecific ST abnormality Abnormal ECG Electronically Signed By: Roscoe Mathias [id number]
[2016-09-08] MEDS: CARISOPRODOL 350 MG TAB GTB SCH (20:33)
[2016-09-09] MEDS: SOD CHLORIDE 0.45% 1,000 ML IV SCH (04:00)
[2016-09-09 04:19] VITALS: BP 108/58; PULSE 56; RESP 16
[2016-09-09] MEDS: IBUPROFEN 400 MG TAB PO SCH ×3 (05:33→18:00)
[2016-09-09] MEDS: PANTOPRAZOLE (EC) 40 MG TAB PO SCH (05:33)
[2016-09-09 07:36] LABS: CK-MB 3.96 ng/ml (0.0-2.4)
[2016-09-09 07:39] LABS: TROPONIN-I 1.75 ng/ml (0.00-0.12)
[2016-09-09 08:00] VITALS: BP 109/60; PULSE 67; RESP 20
[2016-09-09] MEDS: ASPIRIN 81 MG TAB PO SCH (09:23)
[2016-09-09] MEDS: FERROUS SULFATE (EC) 325 MG TAB PO SCH (09:23)
[2016-09-09] MEDS: ACETAMINOPHEN 325 MG TAB PO PRN (09:23)
[2016-09-09] MEDS: CARISOPRODOL 350 MG TAB GTB SCH ×2 (09:23→12:28)
[2016-09-09] MEDS: ENOXAPARIN 40 MG/0.4 ML SYG SC SCH (09:25)
--- NOTE | 2016-09-09 09:49 | PN ---
DATE: 09/09/2016 CARDIOLOGY FOLLOWUP SUBJECTIVE: Discussed with the staff, discussed with her friend/ at the bedside. The patien t with no chest pain or pressure. No palpitation. Has been feeling better, less chest pain now. MEDICATIONS: Reviewed. PHYSICAL EXAMINATION: VITAL SIGNS: Temperature 97.6, heart rate 56, blood pressure 108/58, respiratory rate of 18, satura ting 100%. HEENT: Normocephalic, atraumatic. Pupils are equal and round. CARDIOVASCULAR: Regular rate and rhythm. PULMONARY: With no wheezes. GASTROINTESTINAL: Soft, nontender. EXTREMITIES: No edema. NEUROLOGIC: Awake and alert. PSYCHIATRIC: Depressed mood, but pleasant. LABORATORY: Shows CK 141. Troponin 1.75. ASSESSMENT AND PLAN: 1. Abnormal troponin as well as abnormal EKG. 2. Possible transient ST-elevation myocardial infarction versus others. Coronary angiogram showed no significant coronary artery disease, possibly vasospasm. 3. Dyslipidemia. 4. Anxiety. 5. Sinus bradycardia. RECOMMENDATIONS: Colchicine was discontinued by primary and placed on NSAIDs. DVT prophylaxis will be continued. Consider resuming isosorbide if the patient is able to tolerated it. Dictated By: RACHELLE AGUILAR MD AV/NTS Conf#: [id number] DID#: [id number] CC: HUNG MORAES MD;*End*
--- NOTE | 2016-09-09 15:05 | PDOCDIS ---
Discharge Instructions CONDITION Patient Condition: Good HOME CARE INSTRUCTIONS: Special Diet: Cardiac diet ACTIVITY: Activity Restrictions: Slowly Increase Activity Rest between Activity Avoid heavy lifting Avoid Heavy Housework FOLLOW UP/APPOINTMENTS Appointments Follow up with with PCP in one week FOllow up with cardiology as out-pt OTHER ORDERS: Other Orders: In case of having any chest pain call your PCP, go to nearest emergency HUNG MORAES MD Sep 09, 2016 15:05
[2016-09-09] MEDS ORDERED: INDO25CA25 PO (15:08)
[2016-09-09] MEDS ORDERED: COLC0.6T6 PO (15:08)
[2016-09-09] MEDS ORDERED: FER325 PO (15:08)
[2016-09-09] MEDS ORDERED: ASPI81TA3 PO (15:08)
[2016-09-09] MEDS ORDERED: FAMO20TA18 PO (15:08)
[2016-09-09] MEDS ORDERED: CALC200T26 PO (15:08)
--- NOTE | 2016-09-09 15:34 | DS ---
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 PROCEDURE: 1. 2D echocardiogram. 2. Left heart catheterization with clean coronary arteries, no significant flow-limiting obstructio n. DISCHARGE DIAGNOSES: 1. Myocarditis. 2. Chest pain secondary to #1. 3. Abnormal troponin. MEDICATIONS: 1. Aspirin. 2. Ferrous sulfate. 3. Colchicine. 4. Indomethacin. 5. Calcium carbonate. 5. Famotidine. ALLERGIES: NO KNOWN DRUG ALLERGIES. HOSPITAL COURSE: This is a 41-year-old female with no significant past medical history, presented t [facility] having left-sided chest pain, which was substernal, radiating to her left side of her neck. The pain started 2:30 p.m. The patient was leaving work, stated she was not feeling too , a bit anxious and nervous. Did have diaphoresis and nausea. The pain was 10/10 , radiating to her back. Patient was brought into emergency. EKG demonstrated ST elevation, and co de STEMI was called. 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 She was treated with aspirin 325 mg, nitroglycerin, normal saline. Had emergent left heart catheterization with coronary angiography showed normal coronaries with no significant flow-limiting obstruction. Patient was taken to recovery room and was admitted to telemetry floor where she was continued on me dical management. Patient's 2D echocardiogram was normal with ejection fraction of 55%. Patient wa s placed on aspirin, indomethacin, colchicine secondary to myocarditis. Also, on Ativan for anxiety . Patient was also complaining of having abdominal discomfort, which she was placed on Pepcid. Thi s morning, patient's vitals are stable with temperature 98.5, pulse 67, respiration 20, blood pressu re 109/60, oxygen 100% in room air. Patient is cleared by the cardiology standpoint to be discharge d home with a close followup with primary care physician as outpatient. CONDITION AT TIME OF DISCHARGE: Stable. LABS: Triglycerides 167, total cholesterol 183, LDL 112, HDL 38. TSH 0.850, free T4 0.97. Dictated By: HUNG MORAES MD PN/NTS Conf#: [id number] DID#: [id number]
== END 2016-09-09 17:59 | disposition home or self-care (01) | DRG 287 ==
LOC: E/R 13:38 → SDS 15:46 → CCL 15:46 → MS4 17:55 → CCL 17:55
PROVIDERS: ADMIT Family Medicine; ATTEND Family Medicine
PROC: 4A023N7 Measurement of Cardiac Sampling and Pressure, Left Heart, Percutaneous Approach (ICD-10-PCS; principal; 2016-09-06 14:30)
PROC: B2111ZZ Fluoroscopy of Multiple Coronary Arteries using Low Osmolar Contrast (ICD-10-PCS; 2016-09-06 14:30)
DX: I51.4 Myocarditis, unspecified (principal); I10 Essential (primary) hypertension; E78.5 Hyperlipidemia, unspecified; F41.9 Anxiety disorder, unspecified; Z82.49 Family history of ischemic heart disease and other diseases of the circulatory system
CPT/HCPCS: 36415; 71010; 80053; 80061; 82550; 82553; 82728; 83540; 83690; 83735; 83880; 84439; 84443; 84484; 84703; 85025; 85610; 85730; 90686; 93005; 93306; 93458; 96374; 96375; C1769; C1887; C1894; J0583; J1644; J1650; J2060; J2250; J2270; J2405; J3010; J7030; Q9967